=== PATIENT | female | born 1935 | race Caucasian/White ===

== ENCOUNTER 2021-07-31 16:26 | Inpatient (IN) | payer OTHER, SELFPAY ==
[~2021-07-31] VITALS: Ht 172.7 cm; Wt 91.6 kg
[2021-07-31 16:29] VITALS: BP 110/52
--- NOTE | 2021-07-31 16:29 | NUR ---
BIBA TO BED
--- NOTE | 2021-07-31 16:38 | NUR ---
DR JUAREZ AT BEDSIDE EXAMINING PT
--- NOTE | 2021-07-31 16:42 | NUR ---
EKG READS NSR AT 74 HR ERMD NOTIFIED
--- NOTE | 2021-07-31 16:52 | NUR ---
85 Y/O FEMALE BIBA C/O ABNORMAL LABS. PER EMS PT IS FROM [facility]. POTASSIUM WAS 5.9 YESTERDAY, RECEIVED RESULTS TODAY AT THE FACILITY. DENIES ANY PAIN, RECENT FEVER, CHILLS, OR COUGH. ON 2L NASAL CANNULA, O2 SATURATION 96%. MEDHX: AFIB, HTN, DM, PACEMAKER, CAD, CABG, AORTIC STENOSIS, GLAUCOMA ALLERIGES: AMOXICILLIN, SULFA, PENICILLIN
--- NOTE | 2021-07-31 16:55 | NUR ---
PT REQUESTING FOR WATER, PER DR ANN VELÁZQUEZ TO GIVE. WATER PROVIDED.
--- NOTE | 2021-07-31 17:00 | NUR ---
LAB AT BEDSIDE
[2021-07-31 17:21] LABS: BASOPHILS # (AUTO) 0.1 K/uL (0.00-0.22); BASOPHILS % (AUTO) 0.7 % (0.0-2.0); EOSINOPHILS # (AUTO) 0.1 K/uL (0-0.4); EOSINOPHILS % (AUTO) 1.5 % (0.0-4.0); HEMOGLOBIN 11.1 g/dL (12.0-16.0); LYMPHOCYTES # (AUTO) 1.1 K/uL (2.5-16.5); LYMPHOCYTES % (AUTO) 13.7 % (20.5-51.1); MEAN CORPUSCULAR HEMOGLOBIN 30 pg (27-31); MEAN CORPUSCULAR HGB CONC 32 g/dL (33-37); MONOCYTES # (AUTO) 0.8 K/uL (0.8-1.0); MONOCYTES % (AUTO) 9.5 % (1.7-9.3); NEUTROPHILS # (AUTO) 6.1 K/uL (1.8-7.7); NEUTROPHILS % (AUTO) 74.6 % (42.2-75.2); PLATELET COUNT (AUTO) 290 K/uL (140-450); RED BLOOD CELL COUNT(AUTO) 3.76 MIL/uL (4.20-5.40); RED CELL DISTRIBUTION WIDTH 16.4 % (11.6-13.7); WHITE BLOOD COUNT (AUTO) 8.1 K/uL (4.8-10.8)
--- NOTE | 2021-07-31 17:22 | NUR ---
XRAY AT BEDSIDE
[2021-07-31 17:34] LABS: ALBUMIN 2.6 g/dL (3.4-5.0); ANION GAP 11.1 (8-16); ASPARTATE AMINOTRANSFERASE 17 U/L (15-37); CARBON DIOXIDE 28.8 mmol/L (21-32); CHLORIDE 101 mmol/L (98-107); CREATININE 0.9 mg/dL (0.6-1.3); GLUCOSE 185 mg/dL (74-106); POTASSIUM 4.9 mmol/L (3.5-5.1); SODIUM SERUM 136 mmol/L (136-145); TOTAL BILIRUBIN 0.8 mg/dL (0.0-1.0); UREA NITROGEN, BLOOD 30 mg/dL (7-18)
[2021-07-31] MEDS ORDERED: FUROSEMIDE 40 MG/4 ML VIAL IVP ONE (18:15)
--- NOTE | 2021-07-31 18:24 | NUR ---
PT'S SON JIMENA AT BEDSIDE
[2021-07-31] MEDS ORDERED: LANTUS SUBQ (18:50)
[2021-07-31] MEDS ORDERED: ACET-2619 PO (18:50)
[2021-07-31] MEDS ORDERED: WARF6TAB41 PO (18:50)
[2021-07-31] MEDS ORDERED: DORZ10SO22 OP (18:50)
[2021-07-31] MEDS ORDERED: WARF10TA19 PO (18:50)
[2021-07-31] MEDS ORDERED: MECL-303 PO (18:50)
[2021-07-31] MEDS ORDERED: LOSA100T1 PO (18:50)
[2021-07-31] MEDS ORDERED: LEVO112C2 PO (18:50)
[2021-07-31] MEDS ORDERED: PRAV40TA3 PO (18:50)
[2021-07-31] MEDS ORDERED: MULT-1328 PO (18:50)
--- NOTE | 2021-07-31 19:06 | NUR ---
Pt report given to YARELIS NOWAK. Transfer of care at this time.
[2021-07-31] MEDS ORDERED: guaiFENesin DM 200/20 MG-10 ML 10 ML UDC PO PRN (19:15)
[2021-07-31] MEDS ORDERED: ZOLPIDEM 5 MG TAB PO PRN (19:15)
[2021-07-31] MEDS ORDERED: POTASSIUM CHLORIDE 10 MEQ TABER PO PRN (19:15)
[2021-07-31] MEDS ORDERED: ONDANSETRON 4 MG/2 ML VIAL IM/IVP PRN (19:15)
[2021-07-31] MEDS ORDERED: HYDROcodone/APAP 7.5/325 MG 1 TAB PO PRN (19:15)
[2021-07-31] MEDS ORDERED: DOCUSATE SODIUM 100 MG GELCAP PO PRN (19:15)
[2021-07-31] MEDS ORDERED: ACETAMINOPHEN 325 MG TAB PO PRN (19:15)
--- NOTE | 2021-07-31 19:20 | NUR ---
PATIENT OBSERVED IN BED RESTING COMFORTABLY, VSS, NO NOTED ACUTE DISTRESS, DENIES ANY PAIN. PATIENT ALERT AND ORIENTED X3. SON LEFT BEDSIDE FOR THE NIGHT. ALL SAFETY MEASURES IN PLACE. WILL CONTINUE TO MONITOR.
--- NOTE | 2021-07-31 19:30 | NUR ---
O2 SAT NOTED TO DROP BETWEEN 85%-90%, PUT PATIENT ON O2 2L NC. O2 SAT INCREASED TO 99%. PATIENT STABLE IN NO ACUTE DISTRESS. WILL CONTINUE TO MONITOR.
[2021-07-31 19:40] LABS: PROTHROMBIN TIME 10.5 secs (10.8-13.4)
[2021-07-31 19:53] LABS: CHOL/HDL RATIO 2.9 (1-4.5); FREE T4 (FREE THYROXINE) 1.32 ng/dL (0.76-1.46); MAGNESIUM 2.4 mg/dL (1.8-2.4); PHOSPHORUS 3.3 mg/dL (2.5-4.9); THYROID STIMULATING HORMONE 1.9 uIU/mL (0.34-3.74)
[2021-07-31] MEDS: INSULIN LANTUS 100 UNITS/ML 10 ML VIAL SUBQ SCH (21:00)
[2021-07-31] MEDS ORDERED: PRAVASTATIN SODIUM PO SCH (21:00)
--- NOTE | 2021-07-31 21:09 | NUR ---
SPOKE TO KEYANNA BRYANT TO REPORT LOW DIASTOLIC B/P READINGS X3 TIMES. B/P 133/33. 140/32, AND 137/36. PATIENT IN STABLE CONDITION TO ACUTE DISTRESS. DR. MATUTE ORDERED MIDODRINE 10MG PO ONCE.
[2021-07-31] MEDS ORDERED: MIDODRINE 5 MG TAB ONE (21:13)
--- NOTE | 2021-07-31 21:20 | NUR ---
PATIENT B/P INCREASED 137/51. PATIENT REFUSED MIDODRINE AT THIS TIME AND ASKED TO HOLD THE MEDICATION IN CASE NEEDED AT A LATER TIME. PATIENT IN STABLE CONDITION.
[2021-07-31] MEDS ORDERED: MIDODRINE 5 MG TAB PO SCH (21:25)
--- NOTE | 2021-07-31 22:00 | NUR ---
PATIENTS ACCUCHECK 132, DID NOT ADMINSITER 20 UNITS OF LANTUS INSULIN ORDERED. PATIENT IN STABLE CONDITION, NO ACUTE DISTRESS NOTED. WILL CONTINUE TO MONITOR AND CHECK BS.
--- NOTE | 2021-07-31 22:30 | NUR ---
MIDODRINE GIVEN, B/P 129/48. PATIENT IN STABLE CONDITION. NO ACUTE DITRESS NOTED.
--- NOTE | 2021-08-01 00:47 | NUR ---
PATIENT IN BED RESTING COMFORTABLY IN NO ACUTE DISTRESS, VSS. ALL SAFETY MEASURES IN PLACE. WILL CONTINUE TO MONITOR AND FOLLOW POC.
--- NOTE | 2021-08-01 03:45 | NUR ---
PROVIDED REPORT TO TAMERA [facility] TELE NURSE FOR TRANSFER OF CARE REPORT.
--- NOTE | 2021-08-01 04:00 | NUR ---
Patient will be admitted to care of KEYANNA MATUTE. Admited to TELE. Will go to room 124A. Belongings list completed. Report to TAMERA.
[2021-08-01 04:30] VITALS: BP 99/53
--- NOTE | 2021-08-01 04:30 | NUR ---
Admitted from ER TO TELEMETRY UNIT, with chief complaint of ABNORMAL LABS, K LEVEL - 5.9. 85 y/o ,Female, AWAKE, A/OX 2-3, WITH FORGETFULNESS AND CONFUSED AT TIMES. RESPIRATION EVEN AND UNLABORED. DESATURATES TO 88% WITHOUT OXYGEN. 02 SAT - 96% WHEN ON 2 LITERS VIA N/C. LUNGS CLEAR ON BILATERAL AUSCULTATION. ABDOMEN SOFT WITH POSITIVE BOWEL SOUNDS ON ALL QUADRANTS. PATIENT IS INCONTINENT. SAFETY MEASURES ENFORCED. BED IN THE LOWEST POSITION, CALL LIGHT IN REACH. PUT BED ON ALARM.oriented to call light, bed, phone,television, bathroom, smoking policy, visiting hours, procedures, ID bracelet on. Belongings list checked.
[2021-08-01 05:37] LABS: BASOPHILS # (AUTO) 0.1 K/uL (0.00-0.22); BASOPHILS % (AUTO) 1.2 % (0.0-2.0); EOSINOPHILS # (AUTO) 0.2 K/uL (0-0.4); EOSINOPHILS % (AUTO) 2.9 % (0.0-4.0); HEMATOCRIT 33.1 % (36-48); HEMOGLOBIN 10.7 g/dL (12.0-16.0); LYMPHOCYTES # (AUTO) 1.3 K/uL (2.5-16.5); LYMPHOCYTES % (AUTO) 15.9 % (20.5-51.1); MEAN CORPUSCULAR HEMOGLOBIN 30 pg (27-31); MEAN CORPUSCULAR HGB CONC 32 g/dL (33-37); MEAN CORPUSCULAR VOLUME 92.9 fL (80-94); MONOCYTES # (AUTO) 0.9 K/uL (0.8-1.0); MONOCYTES % (AUTO) 11.4 % (1.7-9.3); NEUTROPHILS # (AUTO) 5.4 K/uL (1.8-7.7); NEUTROPHILS % (AUTO) 68.6 % (42.2-75.2); PLATELET COUNT (AUTO) 284 K/uL (140-450); RED BLOOD CELL COUNT(AUTO) 3.57 MIL/uL (4.20-5.40); RED CELL DISTRIBUTION WIDTH 15.9 % (11.6-13.7); WHITE BLOOD COUNT (AUTO) 7.9 K/uL (4.8-10.8)
[2021-08-01 05:53] LABS: ANION GAP 6.9 (8-16); CARBON DIOXIDE 32.3 mmol/L (21-32); CHLORIDE 104 mmol/L (98-107); CREATININE 0.8 mg/dL (0.6-1.3); GLUCOSE 118 mg/dL (74-106); POTASSIUM 4.2 mmol/L (3.5-5.1); SODIUM SERUM 139 mmol/L (136-145); UREA NITROGEN, BLOOD 26 mg/dL (7-18)
--- NOTE | 2021-08-01 06:00 | NUR ---
WAKEN UP PATIENT, DIAPER CHANGED. HEAD TO TOE ASSESSMENT DONE WITH CHARGE NURSE SEAN. NOTED BLANCHABLE REDNESS AT THE SACRAL AREA. AND SCATTERED REDNESS AT THE LEFT LOWER EXTREMITY. NOTED PITTING EDEMA 2+ BILATERAL LOWER EXTREMITIES.
[2021-08-01] MEDS: LEVOTHYROXINE 0.112 MG TAB PO SCH (06:30)
--- NOTE | 2021-08-01 06:56 | NUR ---
Patient's Plan of Care was discussed and reviewed with ELIGIBILITY WORKER: TAMERA VYAS
[2021-08-01] MEDS ORDERED: MIDODRINE 5 MG TAB PO SCH (07:00)
--- NOTE | 2021-08-01 07:25 | NUR ---
RECEIVED REPORT FROM WOODS BOSS NURSE FOR CONTINUITY OF CARE. PATIENT IS 85 YEAR OLD FEMALE ADMITTED FROM AN ASSISTED LIVING FOR ABNORMAL LABS. PATIENT IS ALERT AND ORIENTED X2-3 WITH SOME CONFUSION. RESPIRATION EVEN AND UNLABORED. PATIENT ON 2 LITERS VIA N/C WITH 02 SAT AT 96%. LUNGS CLEAR ON BILATERAL AUSCULTATION. ABDOMEN SOFT, NON-TENDER, AND NON-DISTENDED BOWEL SOUNDS ON ALL QUADRANTS NOTED. PATIENT IS INCONTINENT OF BOWEL AND BLADDER. PATIENT HAS IV TO L HAND, 22G. NOTED REDNESS TO SACRUM, BLANCHABLE. ALL SAFETY MEASURES IN PLACE. BED IN THE LOWEST POSITION, CALL LIGHT WITHIN REACH. WILL CONTINUE TO MONITOR.
[2021-08-01 08:00] VITALS: BP 125/50
--- NOTE | 2021-08-01 08:45 | NUR ---
PATIENT HAS BEEN SCREENED AND CATEGORIZED MODERATE NUTRITION RISK. PATIENT WILL BE SEEN WITHIN 3-5 DAYS OF ADMISSION. 08/01/21 08/05/[address]
[2021-08-01] MEDS: LOSARTAN 50 MG TAB PO SCH (09:00)
[2021-08-01] MEDS: FUROSEMIDE 20 MG/2 ML VIAL IVP SCH ×2 (09:48→21:00)
[2021-08-01] MEDS: PANTOPRAZOLE 40 MG TABEC PO SCH (09:48)
--- NOTE | 2021-08-01 09:48 | NUR ---
IV MEDICATION ADMINISTERED BY RN. PO MEDICATION ADMINISTERED. HELD MEDICATION LOPRESSOR DUE TO BP. WILL CONTINUE TO MONITOR.
--- NOTE | 2021-08-01 09:55 | NUR ---
PATIENT AWAKE. PATIENT IS IRRITABLE. YELLING AT NURSE. THREW PILLOW AT NURSE THEN DENIED THROWING PILLOW. PATIENT THEN ATTEMPTED TO GET OUT OF BED AND WALK. THEN BEGAN TO YELL FOR HELP STATING "WHY ARE YOU TRYING TO THROW ME OFF THE BED". STAFF INFORMED PATIENT THAT SHE WAS THE ONE ATTEMPTING TO GET UP OUT OF BED. PATIENT DENIED TRYING TO GET OUT OF BED. PATIENT VERY AGITATED AND CONFUSED. WILL CONTINUE TO MONITOR.
[2021-08-01 12:00] VITALS: BP 116/49
--- NOTE | 2021-08-01 13:26 | NUR ---
PATIENT REFUSING LUNCH TRAY. STATES THE FOOD IS DISGUSTING AND THAT SHE DOES NOT WANT IT. PATIENT STATES "YOU ARE FEEDING ME MUSH I DONT WANT THAT GARBAGE THROW IT AWAY". EDUCATED PATIENT ON IMPORTANCE OF NUTRITION AND EATING A BALANCED MEAL. PATIENT STATED "I DONT CARE I DONT WANT IT". OFFERED ALTERNATIVE. PATIENT STATED "IF ITS MUSH I DONT WANT IT". WILL CONTINUE TO OFFER ALTERNATIVE.
--- NOTE | 2021-08-01 15:28 | NUR ---
ST HERE TO DO SWALLOW EVAL ON PATIENT. PER ST, MECHANICAL SOFT DIET, CCHO, WITH REGULAR THIN LIQUIDS.
--- NOTE | 2021-08-01 15:34 | NUR ---
PT WAS SEEN FOR DYSPHAGIA. PT WAS ABLE TO SAFELY SWALLOW MS DIET WITH THIN LIQUID. RECOMMENDATION MS DIET WITH THIN LIQUID
[2021-08-01 16:00] VITALS: BP 124/49
[2021-08-01] MEDS: WARFARIN 1 MG TAB PO SCH (17:26)
--- NOTE | 2021-08-01 17:40 | NUR ---
PATIENT DINNER TRAY ARRIVED WITH [facility] MECHANICAL SOFT DIET. ASSISTED PATIENT TO EAT DUE TO PATIENT STATING "YOU BETTER HELP ME EAT IM NOT DOING IT ON MY OWN". ASSISTED PATIENT. MONITORED FOR ANY S/S OF ASPIRATION OR DIFFICULTY SWALLOWING. AFTER 2 BITES PATIENT STATED "IM SICK OF EATING THIS, I DONT WANT IT". WILL CONTINUE TO ATTEMPT TO HAVE PATIENT EAT MORE. WILL CONTINUE TO MONITOR.
--- NOTE | 2021-08-01 19:15 | NUR ---
ENDORSED PATIENT TO SENIOR SUPPORT ANALYST NURSE FOR CONTINUITY OF CARE. PATIENT STABLE.
--- NOTE | 2021-08-01 19:16 | NUR ---
RECEIVED REPORT FROM AM SHIFT NURSE FOR CONTINUITY OF CARE. PT IS ALERT AND ORIENTED X2-3 WITH SOME CONFUSION. NO S/S OF DISTRESS. RESPIRATIONS EVEN AND UNLABORED. PATIENT ON 2 LITERS O2 VIA NC. IV ON L HAND 22G SALINE LOCKED. PT IS INCONTINENT OF BOWEL AND BLADDER. SKIN IS WARM, DRY AND NON DIAPHORETIC. NOTED REDNESS TO SACRUM, BLANCHABLE. ALL SAFETY MEASURES IN PLACE. BED IN THE LOWEST POSITION, CALL LIGHT WITHIN REACH. WILL CONTINUE TO MONITOR.
[2021-08-01 20:00] VITALS: BP 130/69
[2021-08-01] MEDS ORDERED: SIMVASTATIN 20 MG TAB PO SCH (21:00)
[2021-08-01] MEDS ORDERED: DEXTROSE 50% 50 ML SYR IVP PRN (21:05)
--- NOTE | 2021-08-01 21:31 | NUR ---
BLOOD GLUCOSE CHECKED, 199. SCHEDULED MEDICATION ADMINISTERED ORDERED EXCEPT FOR LASIX, PT REFUSED. EXPLAINED IMPORTANCE OF MEDICATION COMPLIANCE BUT PT STILL REFUSED. ALL SAFETY MEASURE IN PLACE. WILL CONTINUE TO MONITOR.
[2021-08-01] MEDS: INSULIN LANTUS 100 UNITS/ML 10 ML VIAL SUBQ SCH (21:33)
[2021-08-01] MEDS: INSULIN LISPRO SLIDING SCALE 100 UNITS/ML VIAL SUBQ PRN (21:34)
--- NOTE | 2021-08-01 23:45 | NUR ---
PT WANTS TO GO TO THE RESTROOM, BUT STILL WEAK. PROVIDED BEDSIDE COMMODE TO PT BUT SHE DOES NOT LIKE IT. PT KEEPS ON COMPLAINING, EDUCATED PT ON HER SAFETY. CALL LIGHT WITHIN REACH. ALL SAFETY PRECAUTIONS IN PLACE.
[2021-08-02] VITALS: BP 122/58
--- NOTE | 2021-08-02 01:43 | NUR ---
MADE ROUNDS ON PT, SLEEPING. NO S/S OF DISTRESS. CHEST RISE AND FALL IS SYMMETRICAL. CALL LIGHT WITHIN REACH. BED IN LOW/LOCKED POSITION. WILL CONTINUE TO MONITOR.
--- NOTE | 2021-08-02 03:55 | NUR ---
CHECKED ON PT, NO S/S OF DISTRESS. RESPIRATIONS EVEN AND UNLABORED. ASSISTED PT WITH HER ACTIVITY. CLEANED AND CHANGE PT DIAPER WITH DIRECTOR OF STATE. CALL LIGHT WITHIN REACH. ALL SAFETY MEASURES IN PLACE.
[2021-08-02 04:00] VITALS: BP 142/63
[2021-08-02] MEDS: LEVOTHYROXINE 0.112 MG TAB PO SCH (06:24)
[2021-08-02] MEDS: BLOOD GLUCOSE MONITORING 1 DEV DEV FS SCH ×3 (06:26→16:47)
--- NOTE | 2021-08-02 06:26 | NUR ---
BLOOD GLUCOSE CHECKED, 111. NO COVERAGE NEEDED. WILL CONTINUE TO MONITOR.
[2021-08-02 06:34] LABS: BASOPHILS # (AUTO) 0.1 K/uL (0.00-0.22); EOSINOPHILS # (AUTO) 0.1 K/uL (0-0.4); EOSINOPHILS % (AUTO) 1.5 % (0.0-4.0); HEMATOCRIT 34.6 % (36-48); LYMPHOCYTES # (AUTO) 1.5 K/uL (2.5-16.5); LYMPHOCYTES % (AUTO) 19.3 % (20.5-51.1); MEAN CORPUSCULAR HEMOGLOBIN 30 pg (27-31); MEAN CORPUSCULAR HGB CONC 32 g/dL (33-37); MEAN CORPUSCULAR VOLUME 92.9 fL (80-94); MONOCYTES # (AUTO) 0.9 K/uL (0.8-1.0); MONOCYTES % (AUTO) 11.5 % (1.7-9.3); NEUTROPHILS # (AUTO) 5.2 K/uL (1.8-7.7); NEUTROPHILS % (AUTO) 66.7 % (42.2-75.2); PLATELET COUNT (AUTO) 277 K/uL (140-450); RED BLOOD CELL COUNT(AUTO) 3.72 MIL/uL (4.20-5.40); RED CELL DISTRIBUTION WIDTH 16.2 % (11.6-13.7); WHITE BLOOD COUNT (AUTO) 7.8 K/uL (4.8-10.8)
[2021-08-02 06:46] LABS: ANION GAP 7.7 (8-16); CARBON DIOXIDE 30.4 mmol/L (21-32); CHLORIDE 104 mmol/L (98-107); CREATININE 0.8 mg/dL (0.6-1.3); GLUCOSE 115 mg/dL (74-106); POTASSIUM 4.1 mmol/L (3.5-5.1); SODIUM SERUM 138 mmol/L (136-145); UREA NITROGEN, BLOOD 23 mg/dL (7-18)
[2021-08-02 06:48] LABS: PROTHROMBIN TIME 10.9 secs (10.8-13.4)
[2021-08-02 07:08] LABS: T4 (THYROXINE) 6.2 ug/dL (4.5-12.0)
--- NOTE | 2021-08-02 07:34 | NUR ---
RECEIVED REPORT FROM cook night NURSE FOR CONTINUITY OF CARE. PT IS ALERT AND ORIENTED X2-3 WITH SOME CONFUSION. NO S/S OF DISTRESS. RESPIRATIONS EVEN AND UNLABORED. PATIENT ON 2 LITERS O2 VIA NC. IV ON L HAND 22G SALINE LOCKED. PT IS INCONTINENT OF BOWEL AND BLADDER. SKIN IS WARM, DRY AND NON DIAPHORETIC. NOTED REDNESS TO SACRUM, BLANCHABLE. ALL SAFETY MEASURES IN PLACE. BED IN THE LOWEST POSITION, CALL LIGHT WITHIN REACH.
[2021-08-02 08:00] VITALS: BP 141/74
[2021-08-02] MEDS: FUROSEMIDE 20 MG/2 ML VIAL IVP SCH (08:48)
[2021-08-02] MEDS: PANTOPRAZOLE 40 MG TABEC PO SCH (08:48)
[2021-08-02] MEDS: LOSARTAN 50 MG TAB PO SCH (08:48)
--- NOTE | 2021-08-02 09:04 | NUR ---
PATIENT IN BED, REFUSED TO TAKE MEDICATION, EDUCATED THE PATIENT ABOUT THE IMPORTANCE OF TAKING HER MEDS. PATIENT TOOK THE MEDICATION TOLERATED WELL, NO SOD NOTED, PATIENT TRIED TO GET OUT OF BED, EXPLAINED AND EDUCATED PATIENT ABOUT HER SAFETY AND SHE SHOULD STAY IN BED AND NOT GET OUT. AND CALL THE LIGHT CALL FOR ANY HELP OR NEED. ALL SAFETY M EASURES ON PLACE CALLS LIGHT WITHIN REACH
--- NOTE | 2021-08-02 09:11 | NUR ---
PATIENT IN BED NO COMPLAINS, GOT MORNING MEDICATION ADMINISTRATED TOLERATED WELL, ALL SAFETY MEASURTES ON PLACE CALLS LIGHT WITHIN REACH
[2021-08-02] MEDS ORDERED: FURO-570 PO (10:42)
--- NOTE | 2021-08-02 10:44 | NUR ---
PATIENT TRIED TO GET OUT OF BED, EXPLAINED AND EDUCATED PATIENT ABOUT HER SAFETY AND SHE SHOULD STAY IN BED AND NOT GET OUT. AND CALL THE LIGHT CALL FOR ANY HELP OR NEED. PATIENT CONFUSED AND REFUSING ANY HELP AND UNCOMPLAINETE AND REFUSE ANY EDUCATION OR HELP . ALL SAFETY M EASURES ON PLACE CALLS LIGHT WITHIN REACH
[2021-08-02] MEDS: INSULIN LISPRO SLIDING SCALE 100 UNITS/ML VIAL SUBQ PRN ×2 (11:51→16:50)
--- NOTE | 2021-08-02 12:10 | NUR ---
DC PLANNING: RECEIVED A CALL FROM [facility] [phone] SPOKE WITH NIK SOLORIO, UPDATED PT'S CLINICAL IN ORDER TO PROVIDE THE AUTH [facility] HAS TO FAX THE DC ORDER. FAXED THE DC ORDER TO [phone]. SHE PROVIDE THE TRANSPORT COMPANY NUMBER [phone] . PT IS GOING BACK TO [facility]. AWAITING FOR ROOM NUMBER. Addendum: 08/02/21 at 1964 by Fina Noriega CM LUCIAN FAXED PATIENT'S INFORMATION AND CLINICALS TO [facility] AT ATTENTION GHANSHYAM FROM ADMISSION DEPARTMENT WITH COMPLETED CONFIRMATION AT ABOUT 12:58PM. GHANSHYAM FROM [facility] , CALLED [facility]/LUCIAN STATING THAT SHE HAS RECEIVED PATIENT'S INFORMATION AND CLINICALS AND IS ACCEPTING HER BACK TO HER FACILITY WITH ROOM NUMBER [id number] AND A DIRECT NUMBER TO SHE SALOMON TO PROVIDE [place]APPORT AT . LUCIAN THANKED HER FOR INFORMATION AND ENDED THE CALL. LUCIAN CONTACTED [facility] [employer] CM. SOLORIO AT TO GET PATIENT'S AUTHORIZATION NUMBER #[id number] AND TRANSPORT COMPANY NUMBER ([phone]. Addendum: 08/02/21 at 1705 by Fina Noriega CM DC PLANNING PATIENT IS A AN 85-YEAR-OLD FEMALE ADMITTED AT [facility]/ED ON 07/31/2021. DUE TO SHORTNESS OF BREATH. SW MEET WITH PATIENT AT BED SIDE TO DISCUSS AND GATHER PATIENTS COLLATERAL INFORMATION. PATIENT WAS AWAKE AND A BIT CONFUSED ABOUT WHERE SHE WAS AT THE TIME OF VISIT. PER PATIENT SHE IS UNSURE ABOUT WHY SHE WAS HOSPITALIZED, STATED THAT SHE WAS SEND TO [facility] SNF AND WOULD LIKE TO RETURN THERE AFTER HER DISCHARGE FROM [facility]. STATED THAT HE HAS A FAMILY SUPPORT FROM HIS SON JACKSON AND HIS SISTER JODY. PER PATIENT HER SON JIMENA ROTHMAN AND DAUGHTER AISSATOU ARE HER EMERGENCY CONTACT AND MEDICAL DECISION MAKERS. PATIENT STATED THAT HE HAS ALREADY COMPLETED AND IN PLACE AN ADVANCE DIRECTIVE ([employer]) PATIENT IS UNSURE OF WHICH ONE. AND WAS NOT INTERESTED ON GETTING INFORMATION PACKET PROVIDED BY THESE BUGGY MAN. PER PATIENT SHE HAS MD MARISA BERMUDEZ HER PCP AND FOLLOWS UP WITH HER REGULARLY EVEN WHEN SHE IS AT SNF. PATIENT STATED FEELING BETTER AND WHEN READY SHE WOULD LIKE TO RETURN BACK TO [facility] AT DISCHARGE FROM [facility]. SW WILL FOLLOW UP WITH PATIENT NEEDED. Addendum: 08/02/21 at 1731 by Fina Noriega CM LUCIAN CALL TO SCHEDULED PATIENT'S TRANSPORT AT ([phone] BACK TO [facility] AT [address] [facility]. [facility] [place] [id number] . HOWEVER; ABOUT 1 HOUR OF WAITING AND DISCUSSING PATIENT CASE WITH TRANSPORT AND SUBSTATION TECHNICIAN FROM [facility] ON A THREE WAY CALL IT WAS DETERMINE BY [employer] THAT PATIENT WAS NO LONGER COVER FOR TRANSPORTATION COVERAGE. THEREFORE, AFTER CONSULTING WITH [facility]/NIK [facility]CT [facility] TO SET UP TRANSPORT FOR PATIENT. LUCIAN FAXED TO [facility] AT PATIENT INFORMATION TO SET UP PATIENT'S TRANSPORT BACK TO [facility]. FAX WAS COMPLETED WITH CONFIRMATION AT ABOUT 16:44. FOLLOWED BY A CALL FROM CONNIE LA AT CONFIRMING PATIENT'S MAIL DISTRIBUTION CLERK AND TRANSPORTATION SCHEDULED BACK TO [facility] AT ABOUT 20:00 PREET EPSTEIN THANK HIM FOR CONFIRMATION AND ENDED THE CALL. LUCIAN ENDORSE INFORMATION TO PATIENT'S RN ANGELA AT ABOUT 17:30
--- NOTE | 2021-08-02 12:16 | NUR ---
PATIENT DOING PHYSICAL THERAPY WITH PT, NO COMPLAINS, PATIENT WAS SITTED ON CHAIR BY PHYSICAL THERAPY ALL SAFETY MEASURES ON PLACE CALLS LIGHT WITHIN REACH
[2021-08-02 12:27] VITALS: BP 124/72
--- NOTE | 2021-08-02 14:09 | NUR ---
PATIENT SITTIN IN CHAIR, SHE REFUSED TO GO TO BED, ASKED TO SIT FOR MORE TIME ON THE CHAIR, NO SOD NOTED, NO COMPLAINS, CALLS LIGHT WITHIN REACH, ALL SAFETY MEASURES ON PLACE
[2021-08-02 16:00] VITALS: BP 123/44
[2021-08-02] MEDS ORDERED: WARFARIN 5 MG TAB ONE (16:17)
[2021-08-02] MEDS: WARFARIN 1 MG TAB PO SCH (16:43)
--- NOTE | 2021-08-02 16:50 | NUR ---
PATIENT IN BED NO COMPLAINS, NO SOD NOTED, RECEIVED SCHEDULED MEDS TOLERATED WELL ALL SAFETY MEASURES ON PLACE CALLS LIGHT WITHIN REACH
--- NOTE | 2021-08-02 17:30 | NUR ---
PATIENT IN BED NO COMPLAINS, NO SOD NOTED,PATIENT WILL BE DISCHARGE [facility] RELATIONS MANAGER TIME AT 20;00 BY [facility] SHE WILL BE GOING BACK TO [facility] ALL SAFETY MEASURES ON PLACE CALLS LIGHT WITHIN REACH
[2021-08-02 17:52] VITALS: BP 123/44
--- NOTE | 2021-08-02 18:43 | NUR ---
CHILD JIMENA WAS CALED AND INFORMED ABOUT DISCHARGING HIS MOM TO [facility] AT 20;00 TODAY, FACILITY WERE CALLED TWICE IN ORDER TO GIVE REPORT BUT DID NOT ANSWER THE PHONE. WILL ENDORSE IT TO BOBBIN LOOSE END FINDER TO GIVE REPORT AND CONTINUE THE DISCHARGE
--- NOTE | 2021-08-02 19:10 | NUR ---
RECD, PATIENT RESTING IN BED, AWAKE, A/OX2 WITH FORGETFULNESS AND OCCASIONAL CONFUSION. RESPIRATION EVEN AND UNLABORED. ON 02 AT 2 LITERS VIA N/C. REORIENTED TO HOSPITAL SETTING AND PLAN FOR TRANSFER BACK TO [facility] TONIGHT. NEEDS REINFORCEMENT. IV SALINE LOCK AT THE LEFT FOREARM G22, PATENT AND INTACT. DENIES PAIN 0/10.
--- NOTE | 2021-08-02 19:30 | NUR ---
REPORT GIVEN TO SHE COLLAZO WHO WILL RECEIVE THE PATIENT IN THE ASSISTED LIVING. ALL QUESTIONS ANSWERED.
--- NOTE | 2021-08-02 19:40 | NUR ---
AMBULANCE PERSONNEL OF [facility] CAME, REPORT GIVEN. PATIENT HAS A BM, CLEANSED AND MADE READY FOR TRANSFER. IV SALINE LOCK WAS TAKEN OUT.
--- NOTE | 2021-08-02 20:10 | NUR ---
TAKEN TO HOSPITAL LOBBY PARKING IN STABLE CONDITION, ACCOMPANIED BY AMBULANCE PERSONNEL FOR TRANSFER TO [facility]IV[facility]. SWITCHBOARD OPERATOR JAMES REIS.
== END 2021-08-02 20:10 | DRG 291 ==
LOC: MED 16:26 → MTU 18:23
PROVIDERS: ADMIT Family Medicine; ATTEND Family Medicine
DX: I13.0 Hypertensive heart and chronic kidney disease with heart failure and stage 1 through stage 4 chronic kidney disease, or unspecified chronic kidney disease (principal); I50.43 Acute on chronic combined systolic (congestive) and diastolic (congestive) heart failure; E43 Unspecified severe protein-calorie malnutrition; Z20.822 Contact with and (suspected) exposure to COVID-19; H54.8 Legal blindness, as defined in USA; Z66 Do not resuscitate; E03.9 Hypothyroidism, unspecified; E11.22 Type 2 diabetes mellitus with diabetic chronic kidney disease; I25.10 Atherosclerotic heart disease of native coronary artery without angina pectoris; E87.5 Hyperkalemia; I49.5 Sick sinus syndrome; I08.0 Rheumatic disorders of both mitral and aortic valves; I27.20 Pulmonary hypertension, unspecified; I48.0 Paroxysmal atrial fibrillation; N18.9 Chronic kidney disease, unspecified; Z95.0 Presence of cardiac pacemaker; Z95.1 Presence of aortocoronary bypass graft; Z88.1 Allergy status to other antibiotic agents; Z88.0 Allergy status to penicillin; Z88.2 Allergy status to sulfonamides; Z79.899 Other long term (current) drug therapy; Z68.30 Body mass index [BMI] 30.0-30.9, adult
CPT/HCPCS: 36415; 71045; 80048; 80053; 82150; 82948; 83036; 83690; 83735; 83880; 84100; 84436; 84439; 84443; 84479; 84484; 85025; 85610; 85730; 87081; 92610; 93005; 96374; 97110; 97112; 97116; 97163-GP; 97530; 99285; J1815; J1940; Q0092